=== PATIENT | female | born 1990 | race Caucasian/White ===

== ENCOUNTER 2022-05-15 15:23 | Emergency (ER) | payer MEDICAID, OTHER ==
[~2022-05-15] VITALS: Ht 177.8 cm; Wt 72.2 kg
[~2022-05-15 15:23] MED LIST: NORPTMEDS CO
[2022-05-15 16:34] VITALS: BP 125/75
[2022-05-15] MEDS ORDERED: IBUPROFEN 600 MG TAB PO ONE (17:30)
[2022-05-15] MEDS ORDERED: LIDOCAINE 1% HCL (LOCAL ANESTH.) INJ 20ML MDV ID ONE (17:30)
[2022-05-15] MEDS ORDERED: CEPH-510 PO (18:27)
[2022-05-15] MEDS ORDERED: IBUP600T28 PO (18:27)
== END 2022-05-15 18:37 | disposition home or self-care (01) ==
LOC: ER 15:23
DX: S61.411A Laceration without foreign body of right hand, initial encounter (principal); Z79.1 Long term (current) use of non-steroidal anti-inflammatories (NSAID); Z79.899 Other long term (current) drug therapy; Z88.1 Allergy status to other antibiotic agents; W25.XXXA Contact with sharp glass, initial encounter; Y93.89 Activity, other specified; Y92.89 Other specified places as the place of occurrence of the external cause; Y99.8 Other external cause status
CPT/HCPCS: 12001; 73130; 99283; J2001

== ENCOUNTER 2023-08-23 04:24 | Emergency (ER) | payer BC, OTHER ==
[~2023-08-23] VITALS: Ht 170.2 cm; Wt 65.9 kg
[~2023-08-23 04:24] MED LIST changes: +CEPH-510 PO; +IBUP1TAB5 PO
[2023-08-23 04:48] LABS: Basophils # (auto) 0 10 ^3/uL (0-0.2); Basophils % (auto) 0.8 % (0.0-2.0); Eosinophils # (auto) 0.2 10 ^3/uL (0-0.8); Eosinophils % (auto) 3.3 % (0.0-7.0); Hematocrit 40.1 % (36.0-46.0); Lymphocytes # (auto) 1.9 10 ^3/uL (0.4-5.4); Lymphocytes % (auto) 30.2 % (10.0-50.0); Mean Corpuscular Hemoglobin 32.9 pg (28.0-32.0); Mean Corpuscular Volume 93.9 fL (80.0-100.0); Monocytes # (auto) 0.4 10 ^3/uL (0-1.3); Monocytes % (auto) 6.7 % (0.0-12.0); Neutrophils # (auto) 3.8 10 ^3/uL (1.6-8.6); Red Blood Cells 4.27 10^6/uL (4.0-5.20); Red Cell Distribution Width 12.2 % (11.8-14.3); White Blood Cell 6.4 10^3/uL (4.4-10.8)
[2023-08-23 05:05] LABS: Partial Thromboplastin Time 25.6 SEC (24.5-34.5); Prothrombin Time 10.6 sec (9.3-11.8)
[2023-08-23 05:11] VITALS: PULSE 87; RESP 20; O2SAT 98
[2023-08-23] MEDS: fentaNYL CITRATE 100 MCG/2 ML VL IV ONE (05:15)
[2023-08-23 05:18] LABS: Alanine Aminotransferase 10 U/L (7-40); Albumin 4.1 g/dL (3.2-4.8); Alkaline Phosphatase 40 U/L (46-116); Anion Gap 7 (5-15); Aspartate Aminotransferase 10 U/L (13-40); BUN/Creatinine Ratio 8.5 (10.0-20.0); Bilirubin, Total 0.8 mg/dL (0.2-1.0); Blood Urea Nitrogen 7 mg/dL (9-23); Calcium 9.2 mg/dL (8.7-10.4); Carbon Dioxide 23 mmol/L (20-30); Chloride 108 mmol/L (98-107); Glucose 105 mg/dL (74-106); Potassium 3.2 mmol/L (3.5-5.1); Sodium 138 mmol/L (136-145); Total Protein 6.9 g/dL (5.7-8.2)
[2023-08-23 08:06] VITALS: O2SAT 97
[2023-08-23] MEDS: LORazepam 2MG/ML-1ML VIAL IV ONE (10:23)
[2023-08-23 12:47] LABS: Urine Bacteria None Seen /hpf (None Seen)
[2023-08-23 12:54] VITALS: BP 116/67; PULSE 79; RESP 18; TEMP 98.2; O2SAT 98
[2023-08-23 13:11] LABS: Amphetamine Screen, Urine Neg (NEGATIVE); Barbiturate Scree,Urine Neg (NEGATIVE); Benzodiazephine Screen, Urine Neg (NEGATIVE); Cocaine Screen, Urine Neg (NEGATIVE)
[2023-08-23 13:12] LABS: Cannabinoid Screen, Urine Neg (NEGATIVE); Opiate Scree,Urine Neg (NEGATIVE); Phencyclidine Screen, Urine Neg (NEGATIVE)
[2023-08-23 13:13] LABS: Urine Blood Negative /uL (Negative); Urine Clarity Turbid (Clear); Urine Color Yellow (Yellow); Urine Hyaline Cast FEW /lpf (0 - 2); Urine Mucus FEW (None Seen); Urine Protein, UAD TRACE (Negative); Urine Specific Gravity 1.022 (1.001-1.035); Urine Urobilinogen Normal (Negative); Urine WBC 6 /hpf (0 - 5)
[2023-08-23] MEDS: POTASSIUM CHL 20 Meq TABLET PO ONE (13:26)
== END 2023-08-23 13:47 | disposition home or self-care (01) ==
LOC: ER 04:24
DX: R07.9 Chest pain, unspecified (principal); R10.2 Pelvic and perineal pain; I34.1 Nonrheumatic mitral (valve) prolapse; Z79.899 Other long term (current) drug therapy; Z88.1 Allergy status to other antibiotic agents
CPT/HCPCS: 36415; 71045; 80053; 80307; 81001; 84484; 84702; 85025; 85610; 85730; 93005; 93306